=== PATIENT | female | born 1975 | race Caucasian/White ===

== ENCOUNTER → 2022-04-29 09:44 | Outpatient (CLI) | payer OTHER, SELFPAY ==
[2022-04-29 11:18] LABS: Estradiol, Total 42.8 pg/mL
[2022-04-29 11:36] LABS: TSH w/ Reflex to FT4 1.43 uIU/mL (0.47-4.68)
[2022-04-30 08:36] LABS: Thyroid Peroxidase Antibodies 14 IU/mL (0-34)
== END ==
PROVIDERS: PCP Family Medicine; Referring Provider Obstetrics & Gynecology; Visit Provider Obstetrics & Gynecology
DX: Z13.89 Encounter for screening for other disorder (principal); Z79.890 Hormone replacement therapy
CPT/HCPCS: 36415; 82670; 84439; 84443; 84481; 86376

== ENCOUNTER → 2023-01-06 12:11 | Outpatient (CLI) | payer OTHER, SELFPAY ==
--- NOTE | 2023-01-06 12:14 | DI.US.S_ITS ---
PROCEDURE: US PELVIC COMPLETE INDICATIONS: abnormal uterine bleeding TECHNIQUE: Real-time scanning was performed of the pelvic organs, with image documentation. Additional endovaginal scanning was necessary due to incomplete visualization of the adnexal and endometrial structures by transabdominal scanning. COMPARISON: None. FINDINGS: Uterus: Uterus is anteverted and normal in size at 8.8 x 4.5 x 5.6 cm. The myometrium is homogeneous. The endometrium measures 9.5 mm combined thickness. Ovaries: Surgically absent. Other: No pathologic free abdominal or pelvic fluid. IMPRESSION: Endometrium is abnormally thick in a postmenopausal patient. Differential considerations include carcinoma and hypertrophy. Endometrial biopsy recommended if postmenopausal. We strive to produce accurate, complete, and clear reports of imaging services. To assist us in improving patient care, this report was composed using standard report templates and voice recognition software. Therefore, it may contain abnormal punctuation, insertions and/or omissions. Occasional wrong-word or sound-alike substitutions may occur. Though we review the report and make efforts to correct it, we do recommend that the report be read carefully in proper context to recognize any text inaccuracies. Dictated by: Hope Wilkins M.D. on 01/06/2023 at 13:43 Approved by: Hope Wilkins M.D. on 01/06/2023 at 13:45
== END ==
PROVIDERS: PCP Family Medicine; Referring Provider Obstetrics & Gynecology; Visit Provider Obstetrics & Gynecology
DX: N92.6 Irregular menstruation, unspecified (principal); R93.89 Abnormal findings on diagnostic imaging of other specified body structures; Z90.722 Acquired absence of ovaries, bilateral
CPT/HCPCS: 76830; 76856

== ENCOUNTER 2023-03-03 09:58 | Day surgery (SDC) | payer OTHER, SELFPAY ==
[2023-02-28 12:19] VITALS: BMI 25.4
--- NOTE | 2023-03-03 | PATH_ITS ---
[facility] Accession Number: [id number] No. of containers..01 Tissue . 01 Material submitted: . endometrium - ENDOMETRIAL CURRETTING . 01 Diagnosis: Endometrium, Curettage: Superficial strips of endometrial and endocervical epithelium; please see comment. No evidence of atypical hyperplasia or malignancy. [facility] 03/13/2023 0731 Local . 01 Comment: The histologic findings are suggestive of endometrial atrophy. . 01 Electronically signed: . Toi Paula MD, PhD, Pathologist NPI- [id number] . 01 Gross description: . ENDOMETRIAL CURRETTING: Received in formalin are minute fragments of mucoid and hemorrhagic material measuring 2.0 x 0.5 x 0.1 cm in aggregate. Submitted in toto in 1 cassette. /AATarik 03/08/2023 0110 Local . 01 Pathologist provided ICD-10: N92.4 . 01 CPT . 525755 Specimen Comment: A courtesy copy of this report has been sent to [facility] Pathology Performed at: 01 [facility] [address] [place] [address], [place], [place] [id number] MD Arie Portillo MD Phone: [phone]
[2023-03-03] MEDS: LACTATED RINGERS 1,000 ML 42 ML IV (10:11)
[2023-03-03 10:16] VITALS: BP 112/75; PULSE 79; RESP 18; TEMP 36.6; O2SAT 100; BMI 25.7
--- NOTE | 2023-03-03 10:55 | PM.PREOP ---
Pre-operative Note COVID-19 COVID-19 status: Not tested Interval Note History & Physical reviewed/Exam performed by Physician: Yes Changes to H&P: No
--- NOTE | 2023-03-03 11:21 | SUR.OPER ---
Lithotomy on padded OR bed, head on pillow, arms secured on padded arm boards at <90 degrees abduction. Legs secured in padded yellow fins stirrups.
[2023-03-03 11:43] VITALS: BP 100/65; PULSE 73; RESP 13; TEMP 37; O2SAT 97
[2023-03-03 11:49] VITALS: BP 110/65; PULSE 69; RESP 12; O2SAT 99
[2023-03-03 11:52] VITALS: BP 117/80; PULSE 76; RESP 12; TEMP 36.4; O2SAT 95
--- NOTE | 2023-03-03 11:53 | PM.GYNOP.1 ---
Operative Date/Time/Diagnoses Date of procedure: 03/03/23 Time of procedure: 11:00 Pre-op diagnosis: Postmenopausal bleeding Post-op diagnosis: same Procedure & Clinicians Procedure: Procedures Operation Date: 03/03/23 11:15 Actual Procedure Side Surgeon p Hysteroscopy, D&C of uterus, Endometrial Ablation Panda Bagley MD Indications: Marley is a 47 yo , LMP 12/23/2022 who presented recently for evaluation of postmenopausal bleeding associated with slight endometrial thickening. Patient underwent bilateral oophorectomy and bilateral subcutaneous mastectomy in 2012 due to her BRCA mutation positivity and was initiated then on oral estradiol and oral medroxyprogesterone acetate. She was switched over to transdermal estradiol point 0.5 mg per day and micronized progesterone 100 mg p.o. q.d.. She did well on the new regimen until August of this year when she began having intermittent vaginal spotting on 08/31 -09/27, 10/29-11/03, and again from 12/23-12/31. Recent pelvic ultrasound performed on 12/06/2022 shows: PROCEDURE: US PELVIC COMPLETE INDICATIONS: abnormal uterine bleeding TECHNIQUE: Real-time scanning was performed of the pelvic organs, with image documentation. Additional endovaginal scanning was necessary due to incomplete visualization of the adnexal and endometrial structures by transabdominal scanning. COMPARISON: None. FINDINGS: Uterus: Uterus is anteverted and normal in size at 8.8 x 4.5 x 5.6 cm. The myometrium is homogeneous. The endometrium measures 9.5 mm combined thickness. Ovaries: Surgically absent. Other: No pathologic free abdominal or pelvic fluid. IMPRESSION: Endometrium is abnormally thick in a postmenopausal patient. Differential considerations include carcinoma and hypertrophy. Endometrial biopsy recommended if postmenopausal. Endometrial biopsy performed 01/10/2023 showed only benign endometrial tissue without hyperplasia, atypia, or neoplasia. Patient continues to bleed sporadically and after discussion of all options for further evaluation/treatment, patient has decided to proceed with hysteroscopy and possible biopsies, dilation and curettage of the uterus, and endometrial ablation by NovaSure. She presents today for her scheduled surgery. Surgeon: Panda Bagley Anesthesia Type: General Operative Notes Findings: The endometrial cavity is unremarkable in all respects. 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 There are no focal abnormalities noted within the endometrial cavity. The endometrium itself is low and atrophic in appearance. Closure Type: not applicable Specimen(s): none Estimated blood loss (mL): 5 Blood products transfused: none Procedure in detail: With the patient under general LMA in the modified dorsal lithotomy position, the perineum, vagina, and lower abdomen were prepped and draped in the usual fashion for hysteroscopy with endometrial ablation. A pre-surgical safety time-out was then taken in accordance with [facility] OR protocols. A bivalve speculum was inserted in the vagina and the cervix visualized. The anterior lip of the cervix was grasped with a single-tooth tenaculum and the endocervical canal was then dilated to 6 mm diameter. Hysteroscope was placed through the endocervical canal into the endometrial cavity and the cavity was visualized. There were no localized abnormalities within the endometrial cavity and the endometrium itself was unremarkable. Both tubal ostia were visualized. The hysteroscope was then withdrawn and a fractional dilation and curettage was accomplished with separate pathologic specimen submitted for the endometrial and endocervical curettings. The uterine cavity was then sounded with the NovaSure device and found to be 4.0 cm in depth. The NovaSure device was then inserted through the endocervical canal into the endometrial cavity and the width of the cavity determined to be 2.7 cm. Cavity integrity test demonstrated the cavity to be intact and ablation was initiated. Ablation time was 68 seconds with power utilized 59 w. The NovaSure device was then removed from the endometrial cavity and hysteroscopy demonstrated excellent ablation effect. The tenaculum was then removed from the anterior lip of the cervix and no bleeding was encountered. The speculum was then removed from the vagina and the patient awakened from anesthesia. She was then transferred to the PACU for a period of observation and recovery having tolerated the procedure well. Complications: none Post-operative Condition: stable Disposition: PACU Plan for aftercare: Routine post-op care.
[2023-03-03 11:57] VITALS: BP 111/66; PULSE 67; RESP 19; O2SAT 99
[2023-03-03 12:10] VITALS: BP 116/82; PULSE 70; RESP 16; TEMP 36.6; O2SAT 99
== END 2023-03-03 12:17 | disposition home or self-care (01) ==
PROVIDERS: PCP Family Medicine; Referring Provider Obstetrics & Gynecology; Visit Provider Obstetrics & Gynecology
PROC: 0U5B8ZZ Destruction of Endometrium, Via Natural or Artificial Opening Endoscopic (ICD-10-PCS; CPT 58563; principal; 2023-03-03 11:15)
DX: N92.4 Excessive bleeding in the premenopausal period (principal)
CPT/HCPCS: 58563; J1100; J1885; J2405; J2704; J3010

== ENCOUNTER → 2023-12-19 10:31 | Outpatient (CLI) | payer OTHER, SELFPAY ==
--- NOTE | 2023-12-19 10:32 | DI.US.S_ITS ---
PROCEDURE: US PELVIC COMPLETE INDICATIONS: PAIN X 6 MO. ENDO ABLATION 10 MONTHS AGO. BILAT OOPHORECTOMY TECHNIQUE: Real-time scanning was performed of the pelvic organs, with image documentation. Additional endovaginal scanning was necessary due to incomplete visualization of the adnexal and endometrial structures by transabdominal scanning. COMPARISON: [facility], , US PELVIC COMPLETE, 01/06/2023, 12:24. FINDINGS: Uterus: Uterus is anteverted and normal in size at 7.6 x 4.9 x 3.6 cm. The myometrium is heterogeneous. There is a focal area in the posterior fundal myometrium demonstrating shadowing. The endometrium is not well seen. A linear hyperechoic area at the fundus suspected to be endometrium measures 2 mm in thickness. In the lower uterine segment endometrium, there is an ovoid isoechoic nodule surrounded by trace fluid measuring 0.8 x 0.5 x 0.3 cm. No peripheral or internal vascular flow seen. A few tiny nabothian cysts are present distally in the cervix. Ovaries: Ovaries are surgically absent. No suspicious mass in either adnexa. Other: No pathologic free abdominal or pelvic fluid. IMPRESSION: Heterogeneous myometrium with a focal area of shadowing. This may reflect adenomyosis or fibroid change. Alternatively, this may be postprocedural scarring due to prior endometrial ablation. An avascular nodule within the lower uterine segment endometrium may be small focus of hemorrhage or residual tissue from recent procedure. Endometrial polyp may be present. This was not seen previously. Bilateral oophorectomy without suspicious adnexal mass. We strive to produce accurate, complete, and clear reports of imaging services. To assist us in improving patient care, this report was composed using standard report templates and voice recognition software. Therefore, it may contain abnormal punctuation, insertions and/or omissions. Occasional wrong-word or sound-alike substitutions may occur. Though we review the report and make efforts to correct it, we do recommend that the report be read carefully in proper context to recognize any text inaccuracies. Dictated by: Caridad King M.D. on 12/19/2023 at 21:31 Approved by: Caridad King M.D. on 12/19/2023 at 21:41
== END ==
LOC: US 10:32
PROVIDERS: PCP Family Medicine; Referring Provider Obstetrics & Gynecology; Visit Provider Obstetrics & Gynecology
DX: N99.85 Post endometrial ablation syndrome (principal); Z90.722 Acquired absence of ovaries, bilateral
CPT/HCPCS: 76856

== ENCOUNTER → 2024-01-09 12:00 | Outpatient (CLI) | payer OTHER, SELFPAY ==
[2024-01-09 15:08] LABS: Follicle Stimulating Hormone 5.62 mIU/mL
[2024-01-09 15:24] LABS: Estradiol, Total 22.4 pg/mL
== END ==
LOC: LAB 12:01
PROVIDERS: PCP Family Medicine; Referring Provider Obstetrics & Gynecology; Visit Provider Obstetrics & Gynecology
DX: N99.85 Post endometrial ablation syndrome (principal); Z79.890 Hormone replacement therapy
CPT/HCPCS: 36415; 82670; 83001

== ENCOUNTER 2024-03-28 07:58 | Day surgery (SDC) | payer OTHER, SELFPAY ==
[2024-03-21 10:34] VITALS: BMI 26.9
[2024-03-28] VITALS (11 sets, daily range): BP systolic 101–140; BP diastolic 62–89; PULSE 59–83; RESP 13–18; TEMP 35.9–36.7; O2SAT 96–100; BMI 26.5
--- NOTE | 2024-03-28 | PATH_ITS ---
[facility] Accession Number: [id number] No. of containers..01 Tissue . 01 Material submitted: . uterus - UTERUS AND CERVIX . 01 Diagnosis: UTERUS AND CERVIX, HYSTERECTOMY: Uterine weight: 81 grams. Uterine cervix: Mild chronic cervicitis; negative for dysplasia and malignancy. Endometrium: Weakly proliferative to inactive endometrium. Focal degenerative changes compatible with treatment/ablation effect. Negative for hyperplasia, atypia, and malignancy. Negative for adenomyosis on health and safety representative sections. Negative for leiomyomas. [facility] 04/01/2024 1755 Local . 01 Electronically signed: . Isaías Rico MD, Pathologist NPI- [id number] . 01 Gross description: . Received in formalin labeled with two patient identifiers and uterus and cervix, and consists of a 7.2 x 4.8 x 3.1 cm (81 grams) uterus with an attached 3.1 x 2.7 x 0.8 cm cervix. The uterine serosa is gorman-brown, smooth, glistening, and otherwise unremarkable. The right parametrial tissue is inked red, and the left parametrial tissue is inked yellow. The attached cervix has a smooth, white, glistening, focally hemorrhagic ectocervox and a 0.8 cm slit like patent os. The endocervical canal is gorman, trabeculated, and free of exophytic lesions. The endometrial lining measures 3.5 x 1.8 cm and averages 0.2 cm in thickness. The endometrium is white, slightly scarred, and retracted. However, no endometrial masses or nodules are appreciated. The underlying red-gorman smooth myometrium measures up to 1.8 cm in thickness and is otherwise unremarkable. . Vine Pruner sections are submitted as labeled: A1: Posterior cervix. A2: Anterior cervix. A3: Full thickness endomyometrium, posterior wall. A4: Full thickness endomyometrium, anterior wall. A5: Area of slightly scarred and retracted endometrium, full thickness section from anterior wall. ([id number]) /ROLY 03/29/20242035 Local . 01 Pathologist provided ICD-10: N95.0, N99.85 . 01 CPT . 678569 Specimen Comment: A courtesy copy of this report has been sent to [phone] Performed at: [address] [id number] MD Arie Portillo MD Phone: [phone]
[2024-03-28] MEDS: SCOPOLAMINE 1 PATCH TOP (08:47)
--- NOTE | 2024-03-28 08:47 | PM.PREOP ---
Pre-operative Note COVID-19 COVID-19 status: Not tested Interval Note History & Physical reviewed/Exam performed by Physician: Yes Changes to H&P: No
[2024-03-28] MEDS: ACETAMINOPHEN 325 MG TABLET 975 MG PO (08:48)
[2024-03-28] MEDS: LACTATED RINGERS 1,000 ML 42 ML IV (08:50)
[2024-03-28] MEDS: CEFAZOLIN 2 GM/100 ML PREMIX 100 ML IV (09:09)
--- NOTE | 2024-03-28 09:13 | SUR.OPER ---
Lithotomy on padded OR bed. [place] Pad Positioner under torso. Head on pillow, arms padded and tucked at sides. Legs secured in padded yellow fins stirrups.
[2024-03-28] MEDS: BUPIVACAINE 0.5% W/ EPI (PF) 30 ML VIAL INJ (09:30)
[2024-03-28] MEDS: ROPIVACAINE 0.5% PF 5 MG/ML 20ML VIAL IM (09:30)
--- NOTE | 2024-03-28 10:46 | PM.GYNOP.1 ---
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 Patient underwent bilateral oophorectomy and bilateral subcutaneous mastectomy in 2012 due to her BRCA mutation positivity and was initiated then on oral estradiol and oral medroxyprogesterone acetate. She was switched over to transdermal estradiol point 0.5 mg per day and micronized progesterone 100 mg p.o. q.d.. She did well on the new regimen until August of 2022 when she began having intermittent vaginal spotting on 08/31 -09/27, 10/29-11/03, and again from 12/23-12/31. She underwent hysteroscopy with D&C and endometrial ablation in February 2023 which initially provided excellent relief from her symptoms. Unfortunately she has started having pelvic discomfort since July 2023 following the endometrial ablation in February 2023. Patient had what she thought was a urinary tract infection but workup was negative at that time and again in October/November 2023. Her symptoms are primarily pelvic discomfort which is crampy, primarily in the morning and exacerbated by a full bladder. She has had no vaginal bleeding. Recent pelvic ultrasound performed 12/19/2023 shows: PROCEDURE: US PELVIC COMPLETE INDICATIONS: PAIN X 6 MO. ENDO ABLATION 10 MONTHS AGO. BILAT OOPHORECTOMY TECHNIQUE: Real-time scanning was performed of the pelvic organs, with image documentation. Additional endovaginal scanning was necessary due to incomplete visualization of the adnexal and endometrial structures by transabdominal scanning. COMPARISON: [facility], , US PELVIC COMPLETE, 01/06/2023, 12:24. FINDINGS: Uterus: Uterus is anteverted and normal in size at 7.6 x 4.9 x 3.6 cm. The myometrium is heterogeneous. There is a focal area in the posterior fundal myometrium demonstrating shadowing. The endometrium is not well seen. A linear hyperechoic area at the fundus suspected to be endometrium measures 2 mm in thickness. In the lower uterine segment endometrium, there is an ovoid isoechoic nodule surrounded by trace fluid measuring 0.8 x 0.5 x 0.3 cm. No peripheral or internal vascular flow seen. A few tiny nabothian cysts are present distally in the cervix. Ovaries: Ovaries are surgically absent. No suspicious mass in either adnexa. Other: No pathologic free abdominal or pelvic fluid. IMPRESSION: Heterogeneous myometrium with a focal area of shadowing. This may reflect adenomyosis or fibroid change. Alternatively, this may be postprocedural scarring due to prior endometrial ablation. An avascular nodule within the lower uterine segment endometrium may be small focus of hemorrhage or residual tissue from recent procedure. Endometrial polyp may be present. This was not seen previously. Bilateral oophorectomy without suspicious adnexal mass. We have discussed options for managing her symptoms and after these discussions, patient has decided to proceed with total laparoscopic hysterectomy with bilateral salpingectomy if the fallopian tubes were not removed at the time of bilateral oophorectomy. The patient presents today for her scheduled surgery. Surgeon: Panda Bagley Clinical Geneticist: Misa Wong Anesthesia Type: General Operative Notes Findings: The fallopian tubes and ovaries are absent bilaterally due to prior bilateral salpingo oophorectomy. The uterus is normal in size and shape. There were no abnormalities in either the anterior or posterior cul-de-sac. The remainder of the abdominal cavity is normal laparoscopic inspection. The endometrial cavity has significant scarring which made placement of uterine manipulator slightly more challenging. Closure Type: primary Specimen(s): uterus (With cervix) Applied: catheter Estimated blood loss (mL): 50 Blood products transfused: none Procedure in detail: With the patient in modified dorsal lithotomy position preparations were made by prepping and draping the patient in usual manner for vaginal surgery and insertion of Linares catheter. A pre-surgical time-out was then taken in accordance with [facility] policy. A bivalve speculum was then placed in the vagina and the cervix visualized. The anterior lip of the cervix was then grasped with a single-tooth tenaculum. The uterus was sounded to 5 cm, the endocervical canal dilated slightly, and a VCare uterine manipulator with a medium colpotomy cup was placed. The umbilicus was then infiltrated with 0.5% Marcaine with epinephrine. A 1 cm umbilical incision was made transversely and a Veress needle was used to insufflate the abdominal cavity with carbon dioxide. Once the abdomen was appropriately insufflated, a 5 mm trocar and sleeve were then placed through the umbilical incision. The scope was placed through the trocar and the initial assessment of the intra-abdominal contents carried out. A 2nd and 3rd 5 mm port was then placed 1st in the right mid quadrant from then the left mid quadrant by infiltration of the skin and subcutaneous tissues, a 1 cm transverse incision and insertion of the 5 mm bladeless port. Using a 3 puncture technique, the abdomen and pelvis were inspected laparoscopy and photographically documented. Uterus is mobilized with the VCare manipulator and attention turned to the left side. The power Seal device was used to secure and divide the round ligament with blunt and sharp dissection of the broad down to the level of the uterine artery. The uterine artery was then skeletonized after development of a bladder flap, coagulated, and divided. Once hemostasis was assured on the left side attention was turned to the right and the round ligament, and broad ligament were dissected in a fashion exactly the same as it had been on the left. The right uterine artery was then visualized after skeletonization and coagulated and divided. The uterus was seen to corona after coagulation of both your arteries and the cup was identified through the vaginal muscularis at its insertion with the body of the cervix. Circumferential excision of the vaginal cup was accomplished without difficulty using monopolar current and the uterus mobilized. The uterus was then removed through the vagina and the vaginal cuff closed [id number] with a series of 0 Vicryl [id number] stitches. Hemostasis was excellent, the abdomen was re-insufflated, and the pelvis inspected laparoscopically. The pelvis was inspected for any abnormality or bleeding, and the ureters were each seen to be peristalsing freely. With complete hemostasis assured, the pneumoperitoneum was vented and the ports removed. All of the 5 mm ports were then closed with 4-0 Monocryl on the skin using inverted interrupted sutures. Skin glue was placed and after the glue was dried, an appropriate dressing was applied. The case was then terminated, the patient awakened, and then transferred to PACU after having tolerated the procedure well. Complications: none Post-operative Condition: stable Disposition: PACU Plan for aftercare: Recovery in ambulatory surgery in discharge home later today if pain is under control and she is tolerating oral intake well.
[2024-03-28] MEDS: MEPERIDINE 50 MG/ML INJ 12.5 MG IV (10:56)
[2024-03-28] MEDS: ACETAMINOPHEN 325 MG TABLET 650 MG PO ×2 (11:49→17:20)
[2024-03-28] MEDS: LACTATED RINGERS 1,000 ML 100 ML IV (11:51)
[2024-03-28 13:52] LABS: Estimated Glomerular Filt Rate > 60 mL/min (>60)
--- NOTE | 2024-03-28 16:39 | PM.DS.IH.1 ---
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 Patient underwent bilateral oophorectomy and bilateral subcutaneous mastectomy in 2012 due to her BRCA mutation positivity and was initiated then on oral estradiol and oral medroxyprogesterone acetate. She was switched over to transdermal estradiol point 0.5 mg per day and micronized progesterone 100 mg p.o. q.d.. She did well on the new regimen until August of 2022 when she began having intermittent vaginal spotting on 08/31 -09/27, 10/29-11/03, and again from 12/23-12/31. She underwent hysteroscopy with D&C and endometrial ablation in February 2023 which initially provided excellent relief from her symptoms. Unfortunately she has started having pelvic discomfort since July 2023 following the endometrial ablation in February 2023. Patient had what she thought was a urinary tract infection but workup was negative at that time and again in November 2023. Her symptoms are primarily pelvic discomfort which is crampy, primarily in the morning and exacerbated by a full bladder. She has had no vaginal bleeding. Recent pelvic ultrasound performed 12/19/2023 shows: PROCEDURE: US PELVIC COMPLETE INDICATIONS: PAIN X 6 MO. ENDO ABLATION 10 MONTHS AGO. BILAT OOPHORECTOMY TECHNIQUE: Real-time scanning was performed of the pelvic organs, with image documentation. Additional endovaginal scanning was necessary due to incomplete visualization of the adnexal and endometrial structures by transabdominal scanning. COMPARISON: [facility], , US PELVIC COMPLETE, 01/06/2023, 12:24. FINDINGS: Uterus: Uterus is anteverted and normal in size at 7.6 x 4.9 x 3.6 cm. The myometrium is heterogeneous. There is a focal area in the posterior fundal myometrium demonstrating shadowing. The endometrium is not well seen. A linear hyperechoic area at the fundus suspected to be endometrium measures 2 mm in thickness. In the lower uterine segment endometrium, there is an ovoid isoechoic nodule surrounded by trace fluid measuring 0.8 x 0.5 x 0.3 cm. No peripheral or internal vascular flow seen. A few tiny nabothian cysts are present distally in the cervix. Ovaries: Ovaries are surgically absent. No suspicious mass in either adnexa. Other: No pathologic free abdominal or pelvic fluid. IMPRESSION: Heterogeneous myometrium with a focal area of shadowing. This may reflect adenomyosis or fibroid change. Alternatively, this may be postprocedural scarring due to prior endometrial ablation. An avascular nodule within the lower uterine segment endometrium may be small focus of hemorrhage or residual tissue from recent procedure. Endometrial polyp may be present. This was not seen previously. Bilateral oophorectomy without suspicious adnexal mass. We have discussed options for managing her symptoms and after these discussions, patient has decided to proceed with total laparoscopic hysterectomy with bilateral salpingectomy if the fallopian tubes were not removed at the time of bilateral oophorectomy. The patient presents today for her scheduled surgery. 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 She underwent an uneventful total laparoscopic hysterectomy later that day in the full details of that procedure well summarized on my operative note of that date. Following surgery the patient did extremely well with prompt return of bowel and bladder function, she is ambulating independently, tolerating regular diet, and her pain is well controlled with oral pain medication. She will be discharged at this time to home in an afebrile normotensive condition after having been counseled regarding precautionary symptoms, limitations of activity, medications, and plans for follow-up which will be in 2 weeks. Medications at discharge included resumption of all preadmission medications but the patient will use [id number] pain medications such as Tylenol and ibuprofen for pain relief. She was additionally prescribed Cipro 500 mg p.o. b.i.d. x5 days for UTI prophylaxis. Status at Discharge Cognitive/behavioral status at discharge: oriented Functional status at discharge: independent ambulation Overall status at discharge: patient is progressing back to baseline Time Spent with Patient Time spent: Less than 30 minutes Exam Vital Signs (past 8 hours): - 03/28/24 10:45 03/28/24 10:49 03/28/24 10:54 Temperature 97.1 F L 97.6 F Pulse Rate 83 65 60 Respiratory Rate 14 15 14 Blood Pressure 114/62 101/73 115/81 Pulse Oximetry 96 99 99 Oxygen Delivery Method Room Air Room Air Room Air Oxygen Flow Rate 03/28/24 11:00 03/28/24 11:05 03/28/24 11:10 Temperature 97.1 F L Pulse Rate 64 59 L 64 Respiratory Rate 17 13 17 Blood Pressure 124/77 115/75 124/77 Pulse Oximetry 100 100 100 Oxygen Delivery Method Room Air Room Air Room Air Oxygen Flow Rate 03/28/24 11:15 03/28/24 11:45 03/28/24 12:45 Temperature 96.6 F L Pulse Rate 60 65 60 Respiratory Rate 18 17 17 Blood Pressure 122/79 140/89 115/73 Pulse Oximetry 98 100 98 Oxygen Delivery Method Oxygen Flow Rate 0 0 0 03/28/24 13:15 Temperature Pulse Rate 62 Respiratory Rate 18 Blood Pressure 133/87 Pulse Oximetry 100 Oxygen Delivery Method Oxygen Flow Rate 0 Oxygen Delivery Method Room Air Oxygen Flow Rate 0 Const General: cooperative and comfortable Nutritional Appearance: average body habitus Orientation: alert and oriented x3 HENMT Head: normal to inspection, atraumatic and abrasion Ears: hearing grossly normal bilaterally Face and sinus: face symmetric Eyes General: appearance normal, both eyes and all related structures Conjunctivae: conjunctivae normal Sclera: sclerae normal EOM: EOM intact bilaterally Neck Neck: normal visual inspection Resp Effort & Inspection: normal respiratory effort and able to speak in complete sentences Auscultation: clear to auscultation bilaterally Cardio Rate: regular rate Rhythm: regular rhythm Heart Sounds: S1 normal, S2 normal and no murmurs GI Inspection: normal to inspection and incision (Surgical dressings clean and dry) Palpation: soft, no hepatosplenomegaly and tender (Mild, diffuse postsurgical tenderness) External Female Exam: other (No significant bleeding noted) Extrem General: no calf tenderness Psych Appearance: grossly normal Mental Status: mental status grossly normal Speech and Movement: speech and movement normal Mood: congruent mood Affect: normal affect Attitude: cooperative Thought Process: normal Thought Content: normal Judgment: judgment good Objective Labs 03/28/24 13:26 Labs: Laboratory Results - last 24 hr 03/28/24 13:26 Creatinine 0.67 Estimated GFR > 60 PFSH Medical History (Updated 12/12/23 @ 16:17 by Panda Bagley MD) History of endometrial biopsy (01/10/23) BRCA positive (~2002) Rathke's cyst (~1998) Surgical History (Updated 03/21/24 @ 11:11 by Nallely Bazan RN) History of hysteroscopy (03/03/23) Anesthesia History of oophorectomy (2010) History of mastectomy (2012) History of brain surgery (~1998) Social History household members: spouse Smoking Status: Former smoker alcohol intake: current Discharge Assessment & Plan Assessment and Plan Assessment: 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 Your follow-up appointment is scheduled for 2 weeks after your surgery and I look forward to seeing you then. If however in the meanwhile you have any issues, concerns, or questions, please contact me either through the office phone at [phone], or via the patient portal. Discharge orders & Medications Discharge Orders: Discharge (Order); Ordered 03/28/24 Ordered By: Panda Bagley Prescriptions: Continued progesterone micronized 100 mg capsule 200 mg PO ONCE PM Qty: 60 5RF estradiol 0.05 mg/24 hr patch semiweekly 1 patch transdermal 2XW Qty: 8 12RF Rx Instructions: apply 1 patch for 3 days alternating with 1 patch for 4 days each week Biotin Plus 5,000 mcg- 10 mg Tablet 1 tab PO DAILY Follow up/Referrals: Nissa Vigil MD [Primary Care Provider] - Panda Bagley MD [Physician] - As previously scheduled Diet/Activity/Treatments Diet: Diet as Tolerated Activity: As tolerated Other treatments: [id number] Tylenol and/or ibuprofen may be used for additional pain relief. Nyoa-zyr-ropagyp stool softeners and/or MiraLax may be used as needed for constipation. Skin/Wound/Dressing Care Report to your healthcare provider any signs of infection, such as:: chills, fever, increased pain, unusual drainage and unusual redness Dressing: Dressings should be removed on the morning of 03/30/2024 Visit Report/Discharge Packet Instructions: DI for Hysterectomy, DI for Laparoscopy, DI for Prescription Opioid Use, Scopolamine Transdermal Patch Stand Alone Forms: Stroke Signs & Symptoms, Surgery Discharge Print Language: Montserratian Discharge Data Primary Care Provider: Nissa Vigil Attending Provider: Panda Bagley VTE Deep Vein Thrombosis/Pulmonary Embolism Present on Admission: No IH PROFEE Charge Codes Discharge inpatient/observation: [id number]
--- NOTE | 2024-03-28 17:47 | PC.NURSE ---
Day shift: Paperwork signed and all questions answered. Pain minimal post-op. Ambulated in halls with ease. Linares removed and Pt having multiple voids >300mls. Left unit at approx 1730 via WC. Spouse is driving and was also present for d/c teachings. They p[jaki to stay locally this mykel and go back to [place] tomorrow. Paperwork was signed and all questions answered.
== END 2024-03-28 17:30 | disposition home or self-care (01) ==
LOC: OR 07:59 → AC 08:00
PROVIDERS: PCP Family Medicine; Referring Provider Obstetrics & Gynecology; Visit Provider Obstetrics & Gynecology
PROC: 0UT94ZZ Resection of Uterus, Percutaneous Endoscopic Approach (ICD-10-PCS; CPT 58570; principal; 2024-03-28 09:15)
DX: N99.85 Post endometrial ablation syndrome (principal); N95.0 Postmenopausal bleeding; N72 Inflammatory disease of cervix uteri; Z87.891 Personal history of nicotine dependence; Z15.01 Genetic susceptibility to malignant neoplasm of breast
CPT/HCPCS: 58570; 82565; J0330; J0690; J1100; J1171; J1885; J2175; J2250; J2405; J2704; J3010; J3490

== ENCOUNTER → 2024-11-23 08:50 | Outpatient (CLI) | payer OTHER, SELFPAY ==
[2024-03-28 11:22] VITALS: BMI 26.5
[2024-11-23 10:36] LABS: Add Manual Diff / Slide Review NO; Hematocrit 36.0 % (36-46); Hemoglobin 12.3 g/dL (12.0-16.0); Lymphocytes Absolute Auto 1800 /uL (1100-4500); Mean Corpuscular HGB Conc 34.3 % (30-36); Mean Corpuscular Hemoglobin 32.2 PG (26-34); Mean Corpuscular Volume 93.8 fL (80-100); Platelet Count 244 X10^3/uL (150-400)
[2024-11-23 10:54] LABS: Alanine Aminotransferase 20 IU/L (<35); Albumin 4.2 g/dL (3.5-5.0); Albumin Globulin Ratio 1.8 (1.0-2.8); Alkaline Phosphatase 56 U/L (38-126); Blood Urea Nitrogen 15 mg/dL (7-17); Calcium 8.8 mg/dL (8.4-10.2); Carbon Dioxide 27 mmol/L (22-32); Chloride 103 mmol/L (98-107); Cholesterol 221 mg/dL (140-199); Estimated Glomerular Filt Rate > 60 mL/min (>60); Globulin 2.4 g/dL (1.7-4.1); Glucose 101 mg/dL (70-99); HDL Cholesterol 79 mg/dL (40-60); HEMOLYSIS < 15 (0-50); Potassium 4.6 mmol/L (3.4-5.1); Sodium 138 mmol/L (137-145); Total Protein 6.6 g/dL (6.3-8.2); Triglycerides 83 mg/dL (35-150)
[2024-11-23 11:08] LABS: Vitamin D 25 Hydroxy (D3) 43.2 ng/mL (30.0-100.0)
[2024-11-23 11:20] LABS: TSH w/ Reflex to FT4 1.85 uIU/mL (0.47-4.68)
[2024-11-23 11:39] LABS: Vitamin B12 800 pg/mL (239-931)
== END ==
PROVIDERS: PCP Family Medicine; Referring Provider Family Medicine; Visit Provider Family Medicine
DX: Z13.220 Encounter for screening for lipoid disorders (principal); Z13.29 Encounter for screening for other suspected endocrine disorder; Z79.890 Hormone replacement therapy
CPT/HCPCS: 36415; 80053; 80061; 82306; 82607; 84443; 85025